=== PATIENT | female | born 1950 | race Caucasian/White ===

== ENCOUNTER 2023-08-29 09:18 | Emergency (ER) | payer OTHER ==
[~2023-08-29] VITALS: Ht 160 cm; Wt 74.8 kg
[2023-08-29] MEDS ORDERED: HUMALOG MI100 UNIT/2 SQ (09:43)
== END 2023-08-29 11:32 | disposition home or self-care (01) ==
LOC: ER 09:18
DX: L97.518 Non-pressure chronic ulcer of other part of right foot with other specified severity (principal); E11.9 Type 2 diabetes mellitus without complications; Z79.4 Long term (current) use of insulin; I10 Essential (primary) hypertension

== ENCOUNTER 2025-04-06 12:45 | Emergency (ER) | payer OTHER ==
[~2025-04-06] VITALS: Ht 160 cm; Wt 76.2 kg
[~2025-04-06 12:45] MED LIST: HUMALOG MI100 UNIT/2 SQ
[2025-04-06] MEDS ORDERED: OZEMPIC1 MG/0.71 (14:11)
[2025-04-06] MEDS ORDERED: CARTIA XT240 MG (14:11)
[2025-04-06] MEDS ORDERED: JARDIANCE25 MG (14:12)
[2025-04-06] MEDS ORDERED: PANTOPRAZOLE SO40 MG PO (14:13)
[2025-04-06] MEDS ORDERED: CEFTRIAXONE SODIUM 1,000 MG VIAL IM ONE (16:00)
[2025-04-06] MEDS ORDERED: CEFADROXIL500 MG PO (16:54)
[2025-04-06] MEDS ORDERED: TETANUS & DIPHTHERIA TOX,ADULT 0.5 ML VIAL IM ONE (17:00)
== END 2025-04-06 18:11 | disposition home or self-care (01) ==
LOC: ER 13:07
DX: M79.672 Pain in left foot (principal); I10 Essential (primary) hypertension; E11.9 Type 2 diabetes mellitus without complications; Z79.4 Long term (current) use of insulin
CPT/HCPCS: 73620; 90471; 90714; 96372; 99283; J0696; J1670

== ENCOUNTER 2025-05-26 12:11 | Emergency (ER) | payer OTHER ==
[~2025-05-26] VITALS: Ht 160 cm; Wt 79.4 kg
[~2025-05-26 12:11] MED LIST changes: +CARTIA XT240 MG; +CEFADROXIL500 MG PO; +JARDIANCE25 MG; +OZEMPIC1 MG/0.71; +PANTOPRAZOLE SO40 MG PO
[2025-05-26 12:14] VITALS: BP 187/83; O2SAT 96
[2025-05-26] MEDS ORDERED: KETOROLAC TROMETHAMINE 30 MG VIAL IM ONE (14:15)
== END 2025-05-26 14:36 | disposition home or self-care (01) ==
LOC: ER 12:11
DX: S49.81XA Other specified injuries of right shoulder and upper arm, initial encounter (principal); W19.XXXA Unspecified fall, initial encounter; Y93.79 Activity, other specified sports and athletics; Y92.39 Other specified sports and athletic area as the place of occurrence of the external cause; Y99.8 Other external cause status; G89.11 Acute pain due to trauma; M25.519 Pain in unspecified shoulder; I10 Essential (primary) hypertension; E11.9 Type 2 diabetes mellitus without complications; Z79.4 Long term (current) use of insulin
CPT/HCPCS: 29105; 73030; 73070; 73560; 96372; 99283; J1885